=== PATIENT | female | born 1975 | race Caucasian/White ===

== ENCOUNTER 2018-09-10 21:31 | Emergency (ER) | payer BC ==
[~2018-09-10] VITALS: Ht 160 cm; Wt 56.7 kg
[2018-09-11] MEDS ORDERED: ZITHROMAX500 MG PO (01:07)
[2018-09-11] MEDS ORDERED: ORASEP SPRAY30 ML MM (01:07)
[2018-09-11] MEDS ORDERED: ZYNCOF 20-400120 ML PO (01:07)
== END 2018-09-11 01:28 ==
LOC: ER 21:31
DX: J06.9 Acute upper respiratory infection, unspecified (principal); B96.0 Mycoplasma pneumoniae [M. pneumoniae] as the cause of diseases classified elsewhere